=== PATIENT | male | born 1980 | race Caucasian/White ===

== ENCOUNTER 2022-01-18 12:44 | Day surgery (SDC) | payer MEDICARE ==
[2022-01-18] MEDS ORDERED: LIDOCAINE HCL 2% 100 MG/5 ML IJ ONE (12:45)
[2022-01-18] MEDS ORDERED: Depo-Medrol 40 MG/ML IM ONE (12:45)
[2022-01-18] MEDS ORDERED: Lactated Ringers 1,000 ML IV ONE (15:20)
[2022-01-18] MEDS ORDERED: DIPRIVAN 200 MG/20 ML IV ONE (15:28)
--- NOTE | 2022-01-18 16:58 | XRAY ---
Indication: Bilateral L4-S1 MBB. Intraoperative fluoroscopy provided for 12 seconds. Single digital spot image submitted for interpretation demonstrates posterior needle tips projecting over the expected left and right L4-S1 nerve roots. Correlate with intraoperative findings/report.
--- NOTE | 2022-01-18 16:58 | XRAY ---
12 seconds fluoroscopy time in surgery for bilateral L4-S1 MBB.
== END 2022-01-18 15:47 | disposition home or self-care (01) ==
LOC: SDC-PAIN 12:44
PROVIDERS: ATTEND Psychiatry & Neurology Pain Medicine
DX: M47.816 Spondylosis without myelopathy or radiculopathy, lumbar region (principal); Z79.899 Other long term (current) drug therapy
CPT/HCPCS: 64493; 64494; 72020; 77002; J1030; J2704

== ENCOUNTER 2022-02-16 09:37 | Day surgery (SDC) | payer MEDICARE ==
[2022-02-16] MEDS ORDERED: Marcaine Mpf 0.5% Vial 30 Ml IJ ONE (09:38)
[2022-02-16] MEDS ORDERED: Depo-Medrol 40 MG/ML IM ONE (09:38)
[2022-02-16] MEDS ORDERED: Lactated Ringers 1,000 ML IV ONE (10:24)
[2022-02-16] MEDS ORDERED: VERSED 5 MG/5 ML ONE (10:59)
[2022-02-16] MEDS ORDERED: DIPRIVAN 200 MG/20 ML IV ONE ×2 (11:32→11:47)
[2022-02-16] MEDS ORDERED: Xylocaine-Mpf 2% 5 Ml Vial ONE ×2 (11:32→11:47)
--- NOTE | 2022-02-16 12:33 | XRAY ---
Indication: Bilateral L4-S1 MBB. Intraoperative fluoroscopy provided for 17 seconds. Single digital spot image submitted for interpretation demonstrates posterior needle tips projecting over the expected left and right L4-S1 nerve roots. Correlate with intraoperative findings/report.
--- NOTE | 2022-02-16 13:05 | XRAY ---
17 seconds of fluoroscopy was used in surgery for a bilateral L4-S1 MBB.
== END 2022-02-16 12:03 | disposition home or self-care (01) ==
LOC: SDC-PAIN 09:37
PROVIDERS: ATTEND Psychiatry & Neurology Pain Medicine
DX: M47.816 Spondylosis without myelopathy or radiculopathy, lumbar region (principal); Z79.899 Other long term (current) drug therapy
CPT/HCPCS: 64493; 64494; 72020; 77002; J1030; J2250; J2704

== ENCOUNTER 2022-05-03 10:45 | Day surgery (SDC) | payer MEDICARE ==
[2022-05-03] MEDS ORDERED: XYLOCAINE-MPF 1% 5ML SDV IJ ONE (10:46)
[2022-05-03] MEDS ORDERED: Depo-Medrol 40 MG/ML IM ONE (10:46)
[2022-05-03] MEDS ORDERED: Marcaine Mpf 0.5% Vial 30 Ml IJ ONE (10:46)
[2022-05-03] MEDS ORDERED: APRESOLINE 20 MG/ML INJ ONE (11:15)
[2022-05-03] MEDS ORDERED: VERSED 5 MG/5 ML ONE (12:08)
[2022-05-03] MEDS ORDERED: DIPRIVAN 200 MG/20 ML IV ONE (12:22)
[2022-05-03] MEDS ORDERED: Xylocaine-Mpf 2% 5 Ml Vial ONE (12:22)
[2022-05-03] MEDS ORDERED: Lactated Ringers 1,000 ML IV ONE (12:28)
--- NOTE | 2022-05-03 13:59 | XRAY ---
Indication: Right L4-S1 RFA. Intraoperative fluoroscopy provided for 29 seconds. 3 digital spot image submitted for interpretation demonstrates posterior needle tips projecting over the expected right L4-S1 nerve roots. Correlate with intraoperative findings/report.
--- NOTE | 2022-05-03 14:05 | XRAY ---
29 seconds fluoroscopy time in surgery for right L4-S1 RFA.
== END 2022-05-03 12:53 | disposition home or self-care (01) ==
LOC: SDC-PAIN 10:45
PROVIDERS: ATTEND Psychiatry & Neurology Pain Medicine
DX: M47.816 Spondylosis without myelopathy or radiculopathy, lumbar region (principal); Z79.899 Other long term (current) drug therapy
CPT/HCPCS: 64635; 64636; 72100; 77002; J0360; J1030; J2250; J2704

== ENCOUNTER 2022-05-10 10:34 | Day surgery (SDC) | payer MEDICARE ==
[2022-05-10] MEDS ORDERED: XYLOCAINE-MPF 1% 5ML SDV IJ ONE (10:35)
[2022-05-10] MEDS ORDERED: Marcaine Mpf 0.5% Vial 30 Ml IJ ONE (10:35)
[2022-05-10] MEDS ORDERED: Depo-Medrol 40 MG/ML IM ONE (10:35)
[2022-05-10] MEDS ORDERED: Versed 2 MG/2 ML Injection ONE (11:05)
[2022-05-10] MEDS ORDERED: DIPRIVAN 200 MG/20 ML IV ONE ×2 (11:46→12:00)
[2022-05-10] MEDS ORDERED: Xylocaine-Mpf 2% 5 Ml Vial ONE (11:49)
[2022-05-10] MEDS ORDERED: Lactated Ringers 1,000 ML IV ONE (12:16)
--- NOTE | 2022-05-10 14:05 | XRAY ---
Indication: Left L4-S1 RFA. Intraoperative fluoroscopy provided for 28 seconds. 4 digital spot image submitted for interpretation demonstrates posterior needle tips projecting over the expected left L4-S1 nerve roots. Correlate with intraoperative findings/report.
--- NOTE | 2022-05-10 14:09 | XRAY ---
28 seconds of fluoroscopy was used in surgery for a left L4-S1 RFA.
== END 2022-05-10 12:16 | disposition home or self-care (01) ==
LOC: SDC-PAIN 10:34
PROVIDERS: ATTEND Psychiatry & Neurology Pain Medicine
DX: M47.816 Spondylosis without myelopathy or radiculopathy, lumbar region (principal); Z79.899 Other long term (current) drug therapy
CPT/HCPCS: 64635; 64636; 72100; 77002; J1030; J2250; J2704

== ENCOUNTER 2023-02-21 13:43 | Day surgery (SDC) | payer MEDICARE ==
[2023-02-21] MEDS ORDERED: Depo-Medrol 40 MG/ML IM ONE (13:44)
[2023-02-21] MEDS ORDERED: LIDOCAINE HCL 2% 100 MG/5 ML IJ ONE (13:44)
[2023-02-21] MEDS ORDERED: Decadron 4 MG INJ IV ONE (13:44)
[2023-02-21] MEDS ORDERED: DIPRIVAN 200 MG/20 ML IV ONE (16:01)
[2023-02-21] MEDS ORDERED: Versed 2 MG/2 ML Injection ONE (16:05)
--- NOTE | 2023-02-21 16:54 | XRAY ---
Indication: Right piriformis injection. Intraoperative fluoroscopy provided for 14 seconds. Single digital spot image submitted for interpretation demonstrates posterior needle tip projecting over the expected right piriformis muscle. Small amount of contrast injected for needle tip placement. Correlate with intraoperative findings/report.
--- NOTE | 2023-02-21 17:20 | XRAY ---
14 seconds of fluoroscopy was used in surgery for a right piriformis injection.
[2023-02-21] MEDS ORDERED: Lactated Ringers 1,000 ML IV ONE (17:43)
== END 2023-02-21 16:40 | disposition home or self-care (01) ==
LOC: SDC-PAIN 13:43
PROVIDERS: ATTEND Psychiatry & Neurology Pain Medicine
DX: M79.18 Myalgia, other site (principal); Z79.899 Other long term (current) drug therapy
CPT/HCPCS: 20550; 20553; 72170; 77002; J1030; J1100; J2250; J2704; Q9966